=== PATIENT | female | born 1980 | race Caucasian/White ===

== ENCOUNTER → 2020-03-14 | Outpatient (CLI) | payer OTHER | END | disposition home or self-care (01) | LOC: LABMAIN 17:16 | PROVIDERS: ATTEND Obstetrics & Gynecology | DX: O20.0 Threatened abortion (principal) | CPT/HCPCS: 36415; 84702; 86850; 86900; 86901 ==

== ENCOUNTER → 2020-03-24 | Outpatient (CLI) | payer OTHER ==
--- NOTE | 2020-03-24 14:39 | US ---
EXAMINATION TYPE: Transabdominal DATE OF EXAM: 03/24/2020 2:24 PM COMPARISON: NONE CLINICAL HISTORY: O46.91 BLEEDING/SPOTTING. Bleeding had miscarriage last week. EXAM PERFORMED: Transabdominal (TA) EXAM MEASUREMENTS: MATERNAL ANATOMY Uterus: 7.1 x 3.0 x 4.5 Right Ovary: Obscured by bowel gas. Left Ovary: 1.9 x 1.3 x 1.8 cm Post CDS / Adnexa: wnl Presence of free fluid: no Presence of corpus luteal cyst: no Anteverted uterus without suspicious endometrial thickening on transabdominal pelvic ultrasound inves tigation. No free fluid in pelvic cul-de-sac. IMPRESSION: As above.
== END | disposition home or self-care (01) ==
LOC: RADUSWWP 14:07
PROVIDERS: ATTEND Obstetrics & Gynecology
DX: O46.91 Antepartum hemorrhage, unspecified, first trimester (principal); Z3A.14 14 weeks gestation of pregnancy
CPT/HCPCS: 76801

== ENCOUNTER 2021-03-16 18:47 | Inpatient (IN) | payer OTHER ==
[2021-03-16 19:27] LABS: Appearance,Urine Clear (Clear); Color,Urine Yellow; Creatinine,Urine Random 187.1 mg/dL; Glucose,Urine (UA) Negative (Negative); Ketones,Urine Negative (Negative); Protein,Urine Trace (Negative); Protein/Creatinine Ratio,Urine 0.037
[2021-03-16 19:28] LABS: Bacteria,Urine Rare /hpf; Bilirubin,Urine Negative (Negative); Blood,Urine Negative (Negative); Leukocyte Esterase,Urine Negative (Negative); Mucus,Urine Occasional /hpf; Nitrite,Urine Negative (Negative); RBC,Urine 1 /hpf (0-5); Squamous Epithelial Cell,Urine 11 /hpf (0-4); WBC,Urine 4 /hpf (0-5)
[2021-03-16 20:24] LABS: Basophils % (A) 0 %; Eosinophils # (A) 0.2 k/uL (0-0.7); Eosinophils % (A) 3 %; HCT 34.8 % (34.0-46.0); HGB 12.2 gm/dL (11.4-16.0); Lymphocytes # (A) 2.2 k/uL (1.0-4.8); Lymphocytes % (A) 25 %; MCH 32.2 pg (25.0-35.0); MCV 92.1 fL (80.0-100.0); Mean Platelet Volume 8.8; Monocytes # (A) 0.7 k/uL (0-1.0); Monocytes % (A) 8 %; Neutrophils # (A) 5.6 k/uL (1.3-7.7); Neutrophils % (A) 63 %; Platelet Count 197 k/uL (150-450); RBC 3.77 m/uL (3.80-5.40); RDW 12.8 % (11.5-15.5); WBC 8.9 k/uL (3.8-10.6)
[2021-03-16 20:33] LABS: Uric Acid 6.7 mg/dL (3.7-7.4)
[2021-03-16] MEDS ORDERED: DINOPROSTONE 10 MG INSERT.ER VAGINAL ONE (21:45)
[2021-03-16] MEDS ORDERED: MAGNESIUM SULFATE-WATER PMX 4 GM in WATER FOR INJECTION 1 100ML.BAG IVPB ONE (21:50)
[2021-03-16] MEDS ORDERED: LABETALOL 5 MG/ML VIAL MDV IVP PRN ×3 (21:50)
[2021-03-16] MEDS ORDERED: hydrALAZINE HCL 20 MG/ML 1 ML VIAL IVP PRN (21:50)
[2021-03-16] MEDS ORDERED: CALCIUM GLUCONATE 1 GM/10 ML VIAL IV PRN (21:53)
[2021-03-16] MEDS: BETAMET ACET-BETAMETH SOD PHOS 6 MG/ML MDV IM SCH (22:18)
--- NOTE | 2021-03-16 22:44 | P.HPOB ---
History of Present Illness H&P Date: 03/16/21 Chief Complaint: Uterine at 35 weeks: Hellp syndrome Care is a 41-year-old female 2 para 0 at 35 weeks 2 days gestation who has been followed for possible early preeclampsia versus Precis related liver disease. She was seen by maternal medicine earlier today and labs were ordered. They were not performed earlier today so I called her and brought her to labor and delivery where a stat preeclamptic labs were ordered. Liver enzymes which had been a little elevated in the 80s and 130s last week are now both in the well over 200s. LDH was also elevated to 700. She also has a protein creatinine ratio mouth 0.3. This appears to be atypical preeclampsia/HE LLP syndrome. I did speak with the maternal medicine physician category consultant and we discussed treatment plan. It was unclear since she is not my normal patient if we were treating her like preeclampsia or not and he verify that we will be treating her as a preeclamptic patient. We are moving forward with induction of labor. Should her cervix is essentially fingertip to closed thick and -3 station. We'll plan to do Cervidil ripening tonight with expectation for induction in the morning versus potentially a later in the day if her cervix does not dilate. We'll start magnesium sulfate therapy this evening at 4 g bolus and then 1 g per hour rather than 2 g/h through the night but should she start having any elevated blood pressures neurologic changes or other signs or symptoms will be increased to the normal 2 g/h. At this time we'll withhold Brock catheter with expectation that at least for the next several hours she should be able to ambulate and void and will follow the input and output that way. She is aware that there are risks involved with induction of labor just as there are for section and that she is approximately 5 weeks early. We'll plan to give 1 dose of Celestone in hopes that it will simply some lung maturity through the night prior to the induction in the morning. Theoretically in the morning a second dose can be given after called hours if she is not in imminent danger of delivering. On physical exam her vital signs currently are stable and she is afebrile. Her heart is regular, lungs are clear, extremities are +1-2 edematous but without pain. Deep tendon reflexes are normal. She denies any headache, no epigastric pain, no visual changes and no other signs or symptoms of or severe features of preeclampsia. Again should any of these develop or change we will increase the mag sulfate to the standard 2 g/h dosing. Also once she is in active labor will likely also be increased to the standard 2 g/h dosing will need to discuss this with the on-call doctor in the morning. Assessment intrauterine at 35 weeks with severe preeclampsia by lab/HELLP Plan induction of labor with seizure precautions and magnesium sulfate therapy. Labetalol has been ordered for hypertensive blood pressure developments Steroids to help stem that lung maturity Bedside ultrasound was done verifying vertex position prior to placement of Cervidil Past Medical History History of Any Multi-Drug Resistant Organisms: None Reported Smoking Status: Never smoker Medications and Allergies Home Medications Medication Instructions Recorded Confirmed Type Aspirin [[place] Aspirin EC] 81 mg PO DAILY 03/16/21 03/16/21 History Pnv,Calcium 72/Iron/Folic Acid 1 tab PO DAILY 03/16/21 03/16/21 History [ Plus Tablet] Allergies Allergy/AdvReac Type Severity Reaction Status Date / Time No Known Allergies Allergy Verified 03/16/21 19:11 Exam Osteopathic Statement: *. No significant issues noted on an osteopathic struct ural exam other than those noted in the History and Physical/Consult. Intake and Output 03/16/21 03/16/21 03/16/21 06:59 14:59 22:59 Other: Weight 136.078 kg Results Result Diagrams: 03/16/21 20:00 03/16/21 20:00 Abnormal Lab Results - Last 24 Hours (Table) 03/16/21 03/16/21 03/16/21 Range/Units 19:09 20:00 20:00 RBC 3.77 L (3.80-5.40) m/uL AST 290 H (14-36) U/L ALT 279 H (4-34) U/L Lactate Dehydrogenase 779 H (313-618) U/L Ur Squamous Epith Cells 11 H (0-4) /hpf Urine Bacteria Rare H (None) /hpf Urine Mucus Occasional H (None) /hpf
[2021-03-16] MEDS: LACTATED RINGERS 1,000 ML IV SCH (23:15)
[2021-03-16] MEDS: MAGNESIUM SULFATE-WATER PMX 20 GM in WATER FOR INJECTION 1 500ML.BAG IV SCH (23:37)
[2021-03-17] MEDS ORDERED: METHYLERGONOVINE 0.2 MG/ML 1 ML AMP IM PRN (06:10)
[2021-03-17] MEDS ORDERED: LIDOCAINE 0.5% (PF) 5 MG/ML (50 ML SDV) SQ PRN (06:10)
[2021-03-17] MEDS ORDERED: CARBOPROST TROMETHAMINE 250 MCG/ML 1 ML AMP IM PRN (06:10)
[2021-03-17] MEDS ORDERED: TERBUTALINE 1 MG/ML VIAL SQ PRN (06:10)
[2021-03-17] MEDS ORDERED: AMPICILLIN 2,000 MG in SODIUM CHLORIDE 0.9% 100 ML IVPB STA (06:10)
[2021-03-17] MEDS ORDERED: OXYTOCIN 10 UNIT/ML 1 ML VIAL IM PRN (06:10)
[2021-03-17] MEDS ORDERED: OXYTOCIN 30 UNITS/500 ML NS 30 UNIT in SALINE 1 500ML.BAG IV SCH ×2 (06:15→22:12)
[2021-03-17] MEDS ORDERED: LACTATED RINGERS 1,000 ML IV SCH (06:15)
--- NOTE | 2021-03-17 07:27 | P.PN ---
Progress Note - Text Progress Note Date: 03/17/21 Lovely was seen and evaluated this morning she did have some cramping last night and an exam was done she is now 1/2 cm 80% effaced -3 station and artificial rupture membranes was performed and clear fluid is noted. Pitocin augmentation of labor will be initiated and she is received 1 dose of and about X as a group B strep prophylaxis. Her blood pressures have remained stable through the night and she has no other signs or symptoms of or severe features of preeclampsia. She does relate that she has had some lightheadedness secondary likely to the mag sulfate but otherwise she is doing well this morning.
[2021-03-17] MEDS: AMPICILLIN 1,000 MG in SODIUM CHLORIDE 0.9% 50 ML IVPB SCH ×3 (11:08→18:52)
[2021-03-17] MEDS: LACTATED RINGERS 1,000 ML IV SCH (11:39)
[2021-03-17] MEDS ORDERED: ROPIVACAINE 5MG/ML 20ML VIAL ONE (11:49)
[2021-03-17] MEDS ORDERED: SODIUM CHLORIDE 0.9% 100 ML BAG ONE (11:49)
[2021-03-17] MEDS ORDERED: fentaNYL (PF) 50 MCG/ML 5 ML AMP ONE (11:49)
[2021-03-17] MEDS ORDERED: ROPIVACAINE 100 MG, fentaNYL (PF). 200 MCG in SODIUM CHLORIDE 0.9% 76 ML EPIDURAL ONE (12:06)
[2021-03-17] MEDS: MAGNESIUM SULFATE-WATER PMX 20 GM in WATER FOR INJECTION 1 500ML.BAG IV SCH (20:10)
[2021-03-17] MEDS ORDERED: CITRIC ACID-SODIUM CITRATE 15 ML CUP PO ONE (20:41)
[2021-03-17] MEDS ORDERED: ceFAZolin 3 GM in SODIUM CHLORIDE 0.9% 100 ML IVPB ONE (20:42)
[2021-03-17] MEDS ORDERED: fentaNYL (PF) 50 MCG/ML 2 ML AMP ONE (20:57)
[2021-03-17] MEDS ORDERED: NALBUPHINE 10 MG/ML (1 ML AMP) ONE (20:57)
[2021-03-17] MEDS ORDERED: OXYTOCIN 30 UNITS/500 ML NS BAG IV ONE (20:57)
[2021-03-17] MEDS ORDERED: MORPHINE SULFATE (PF) 0.3 MG/0.3 ML SYR ONE (20:57)
[2021-03-17] MEDS ORDERED: ONDANSETRON 4 MG/2 ML VIAL ONE (20:57)
[2021-03-17] MEDS ORDERED: KETOROLAC 15 MG/ML 1 ML VIAL ONE (20:57)
--- NOTE | 2021-03-17 21:49 | P.OP ---
Date of Procedure: 03/17/21 Preoperative Diagnosis: 1. Intrauterine at 35-3/7 weeks. 2. Atypical preeclampsia. 3. Arrest of dilatation. Postoperative Diagnosis: Same Procedure(s) Performed: Primary low transverse section Anesthesia: epidural Surgeon: Marcela Henry Manager Product Design #1: Viola Dick Estimated Blood Loss (ml): 400 Pathology: other (Placenta) Condition: stable Disposition: floor Indications for Procedure: This is a 41-year-old female 2 para 0 at 35-2/7 weeks who presented after being seen by maternal medicine earlier in the day. She had preeclamptic labs drawn and her liver enzymes were significantly elevated. After consultation with [facility] she was admitted and placed on magnesium sulfate seizure prophylaxis and induction of labor was started. She underwent Cervidil cervical ripening followed by oxytocin induction of labor with artificial rupture of membranes with clear fluid noted. She did receive epidural anesthesia. She reached a maximum of 5 cm and made no cervical change for at least 5-6 hours despite adequate contractions. In addition more caput was noted on the fetus. At this time the decision was made to proceed with primary section secondary to failure to progress. I have discussed the risks, benefits, and alternative therapies for the above- mentioned procedure and for both sedation/anesthesia as well as necessary blood products administration, if indicated, as they pertain to this patient. The patient has indicated her understanding and acceptance of the risks and procedures discussed. Operative Findings: A viable male infant is noted in the vertex presentation with scores of 4 at 1 minute 5 at 5 minutes and 7 at 10 minutes and nuchal cord 1. There was significant caput noted. Normal uterus tubes and ovaries are noted. Description of Procedure: The patient is taken to the operating room where she is placed in the dorsal supine position with leftward tilt after epidural anesthesia is bolused. She is prepped and draped in the normal sterile fashion. Skin was tested and found to be adequately anesthetized. A Pfannenstiel skin incision was made with a scalpel. A second knife was used to carry the incision down to the underlying layer of fascia. The fascia was nicked in the midline with a scalpel and then extended laterally bilaterally with Lomas scissors. The anterior lip of the fascia was grasped with 2 Amandeep clamps and then dissected off the underlying rectus muscle in the midline with Lomas scissors. The inferior aspect of the fascial incision was grasped with 2 Amandeep clamps and dissected off the unde rlying rectus muscle and the midline with Lomas scissors. Next the peritoneum layer was tented up with 2 hemostats and then entered sharply with the scalpel. The incision is extended superiorly and inferiorly with Metzenbaum scissors. Next a DeLee retractor is placed. The vesicouterine peritoneum is entered sharply with Metzenbaum scissors and extended laterally bilaterally with Metzenbaum scissors and then the bladder flap is pushed inferiorly. The lower uterine segment is incised in transverse fashion with the scalpel and then bluntly entered with a hemostat. Clear fluid is noted. The incision was then extended laterally bilaterally with 2 fingers. Next the infant's head is delivered through the incision. Nose and mouth are bulb suctioned. Nuchal cord 1 is reduced. The remainder of the is easily delivered and placed on mother's abdomen. Cord is clamped and cut. Infant is taken to warmer by nursing staff. Dr. Stewart, the sanitor, is present for delivery. Uterine fundus is gently massaged and placenta is delivered manually. Uterus is exteriorized and cleared of all clots and debris. Uterine incision is closed with 0 Vicryl suture in a running locked fashion. A second layer of 0 Vicryl suture is used in a running fashion for hemostasis. Once adequate hemostasis as assured, the vesicouterine peritoneum is reapproximated with 2-0 Vicryl suture in a running fashion. Posterior cul-de-sac is suctioned of all clots and debris. Uterus is returned to the abdomen. Incision is noted to be hemostatic. Peritoneal layer is closed with 0 Vicryl suture in a running fashion. Muscle layer is reapproximated with 0 Vicryl suture in interrupted fashion. An interrupted stitches placed on the muscle on the right side for hemostasis. Fascia layer is then closed with 0 PDS suture with 2 sutures meeting in the midline and the knots buried in either side and in the midline. The subcutaneous tissue was then closed with 2-0 Vicryl suture. Skin layer was then closed with cesilia. All sponge and needle counts are correct. The patient is taken to recovery room in stable condition.
[2021-03-17] MEDS ORDERED: ONDANSETRON 4 MG/2 ML VIAL IVP PRN (22:12)
[2021-03-17] MEDS ORDERED: HYDROmorphone 2 MG TAB PO PRN ×2 (22:12)
[2021-03-17] MEDS ORDERED: diphenhydrAMINE 50 MG/ML 1 ML VIAL IVP PRN ×2 (22:12)
[2021-03-17] MEDS ORDERED: NALOXONE 0.4 MG/ML 1 ML VIAL IV PRN (22:12)
[2021-03-17] MEDS ORDERED: diphenhydrAMINE 25 MG CAP PO PRN (22:12)
[2021-03-17] MEDS ORDERED: diphenhydrAMINE 50 MG CAP PO PRN (22:12)
[2021-03-17] MEDS ORDERED: LANOLIN CREAM 5 GM TUBE TOPICAL PRN (22:12)
[2021-03-17] MEDS ORDERED: SIMETHICONE 80 MG CHEWABLE PO PRN (22:12)
[2021-03-17] MEDS ORDERED: ZOLPIDEM 5 MG TAB PO PRN (22:12)
[2021-03-17] MEDS ORDERED: HYDROmorphone PCA 10 MG/50 ML BAG IV PRN (22:12)
[2021-03-17] MEDS ORDERED: HYDROmorphone 0.2 MG/1 ML SYRINGE IVP PRN (22:12)
[2021-03-17] MEDS ORDERED: HYDROmorphone 1 MG/ML 1 ML SYRINGE IVP PRN (22:12)
[2021-03-17] MEDS ORDERED: METOCLOPRAMIDE 5 MG/ML 2 ML VIAL IVP PRN (22:12)
[2021-03-18] MEDS: ACETAMINOPHEN IV (For NPO) 1,000 MG in EMPTY BAG 1 BAG IVPB SCH ×2 (00:19→05:59)
[2021-03-18] MEDS: BETAMET ACET-BETAMETH SOD PHOS 6 MG/ML MDV IM SCH (00:25)
[2021-03-18] MEDS: ACETAMINOPHEN TAB 500 MG TAB PO SCH ×5 (00:26→22:57)
[2021-03-18] MEDS: KETOROLAC 15 MG/ML 1 ML VIAL IVP SCH ×4 (03:09→20:06)
[2021-03-18] MEDS: IBUPROFEN 600 MG TAB PO SCH ×4 (03:53→21:25)
[2021-03-18] MEDS ORDERED: Rhogam IMMUNE GLOBULIN 1,500 UNIT/1 ML IM ONE (05:32)
[2021-03-18 07:37] LABS: Basophils % (A) 0 %; Eosinophils % (A) 0 %; HCT 33.4 % (34.0-46.0); Lymphocytes # (A) 1.6 k/uL (1.0-4.8); Lymphocytes % (A) 10 %; MCH 31.1 pg (25.0-35.0); MCV 94.1 fL (80.0-100.0); Monocytes % (A) 7 %; Neutrophils # (A) 12.9 k/uL (1.3-7.7); Neutrophils % (A) 82 %; Platelet Count 212 k/uL (150-450); RBC 3.55 m/uL (3.80-5.40); RDW 13.6 % (11.5-15.5); WBC 15.7 k/uL (3.8-10.6)
[2021-03-18] MEDS: SENNOSIDES-DOCUSATE SODIUM 1 EACH TAB PO SCH ×2 (07:58→20:05)
--- NOTE | 2021-03-18 08:41 | P.PNOBGPC ---
Subjective - Subjective Principal diagnosis: Status post primary section postoperative day #1 Interval history: Patient is doing okay. Lochia is minimal. She is not passing flatus or bowel movement yet. She still has been using and sulfate going at 1 g per hour. She denies any headaches or blurry vision. Baby is in level I nursery. Patient reports: Reports pain well controlled : other (In level I nursery) Objective - Vital Signs Latest vital signs: Vital Signs Temp Pulse Resp BP Pulse Ox 03/18/21 05:00 96.6 F L 67 112/64 99 03/18/21 04:00 64 16 113/59 98 03/18/21 03:00 68 16 124/58 99 03/18/21 02:00 97.4 F L 67 16 114/63 03/18/21 01:00 67 16 120/61 03/18/21 00:08 74 16 120/63 98 03/18/21 00:00 97.8 F 87 16 119/61 100 03/17/21 23:38 76 16 120/56 100 03/17/21 23:08 80 16 119/58 99 03/17/21 22:53 86 16 122/56 98 03/17/21 22:38 97.7 F 81 16 121/57 97 03/17/21 22:23 78 16 120/58 100 03/17/21 22:08 81 16 125/60 97 03/17/21 21:54 97.4 F L 103 H 16 133/62 97 03/17/21 18:00 87 16 122/58 03/17/21 17:00 97.1 F L 92 16 142/80 03/17/21 15:59 97.8 F 75 16 115/52 03/17/21 14:57 96.5 F L 82 16 131/73 03/17/21 14:00 96.9 F L 92 16 140/66 03/17/21 13:00 81 16 133/71 03/17/21 12:00 97.7 F 102 H 16 135/70 03/17/21 11:00 98.4 F 83 16 132/79 03/17/21 10:00 97.5 F L 76 16 116/59 03/17/21 09:00 98.1 F 77 16 131/77 Intake and Output 03/17/21 03/18/21 03/18/21 22:59 06:59 14:59 Intake Total 500 200 Output Total 600 2500 Balance -100 -2300 Intake: Intake, IV Titration 500 200 Amount ACETAMINOPHEN IV (For NPO 100 ) 1,000 mg In Empty Bag 1 bag @ 400 mls/hr IVPB Q6HR [facility] Rx#:[id number] Magnesium Sulfate-Water 500 Pmx 20 gm In Water For Injection 1 500ml.bag @ 1 GM/HR 25 mls/hr IV .Q20H [facility] Rx#:[id number] ceFAZolin 3 gm In Sodium 100 Chloride 0.9% 100 ml @ 200 mls/hr IVPB ONCE ONE Rx#:[id number] Output: Urine 200 2100 Estimated Blood Loss 400 400 Other: Voiding Method Indwelling Catheter Indwelling Catheter # Emeses 2 - Exam Extremities: Present: normal. Absent: tenderness Abdomen: Present: normal appearance, soft (Positive faint bowel sounds 4). Absent: distention, tenderness Incision: Present: normal, dry, intact. Absent: erythematous Uterus: Present: normal, firm. Absent: tenderness - Labs Labs: Abnormal Lab Results - Last 24 Hours (Table) 03/18/21 Range/Units 06:36 WBC 15.7 H (3.8-10.6) k/uL RBC 3.55 L (3.80-5.40) m/uL Hgb 11.0 L (11.4-16.0) gm/dL Hct 33.4 L (34.0-46.0) % Neutrophils # 12.9 H (1.3-7.7) k/uL Assessment and Plan Assessment: Status post primary low transverse section postoperative day #1 Atypical preeclampsia on magnesium sulfate seizure prophylaxis for 24 hours postoperative Plan: We'll discontinue magnesium sulfate at approximately 9 PM tonight along with Brock catheter. Will keep on clear liquids until done with magnesium sulfate. Will repeat liver enzymes in the a.m.
--- NOTE | 2021-03-18 11:33 | P.PN ---
Progress Note - Text Progress Note Date: 03/18/21 Patient seen and examined. Pain well controlled s/p with duramorph given in the epidural. Patient is able to ambulate without difficulty today. Patient denies headache, fever, chills. Continue will current pain regime. Will continue to follow.
[2021-03-18] MEDS: MAGNESIUM SULFATE-WATER PMX 20 GM in WATER FOR INJECTION 1 500ML.BAG IV SCH (15:32)
[2021-03-18] MEDS: LACTATED RINGERS 1,000 ML IV SCH (15:35)
[2021-03-19] MEDS: KETOROLAC 15 MG/ML 1 ML VIAL IVP SCH (02:06)
[2021-03-19] MEDS: IBUPROFEN 600 MG TAB PO SCH ×4 (05:02→23:08)
[2021-03-19] MEDS: ACETAMINOPHEN TAB 500 MG TAB PO SCH ×3 (05:02→19:32)
[2021-03-19 07:21] LABS: Basophils % (A) 0 %; Eosinophils # (A) 0.1 k/uL (0-0.7); Eosinophils % (A) 0 %; HCT 32.3 % (34.0-46.0); HGB 10.6 gm/dL (11.4-16.0); Lymphocytes # (A) 1.9 k/uL (1.0-4.8); Lymphocytes % (A) 17 %; MCH 31.2 pg (25.0-35.0); MCHC 32.7 g/dL (31.0-37.0); MCV 95.4 fL (80.0-100.0); Mean Platelet Volume 8.2; Monocytes # (A) 0.8 k/uL (0-1.0); Monocytes % (A) 7 %; Neutrophils # (A) 8.4 k/uL (1.3-7.7); Neutrophils % (A) 74 %; Platelet Count 196 k/uL (150-450); RBC 3.38 m/uL (3.80-5.40); RDW 13.8 % (11.5-15.5); WBC 11.3 k/uL (3.8-10.6)
[2021-03-19 07:35] LABS: ALT 543 U/L (4-34); AST 541 U/L (14-36); LDH 1470 U/L (313-618)
[2021-03-19] MEDS: SENNOSIDES-DOCUSATE SODIUM 1 EACH TAB PO SCH ×2 (08:27→21:49)
--- NOTE | 2021-03-19 09:03 | P.PNOBGPC ---
Subjective - Subjective Principal diagnosis: Status post primary low transverse section postoperative day #2 Interval history: Patient feels well. She denies any headaches or blurry vision or epigastric pain. Her abdominal pain is fairly well controlled with ibuprofen or Toradol. She is passing some flatus but no bowel movement yet. She is tolerating a regular diet so far. Lochia is minimal. She is working on pumping her breast milk. Patient reports: Reports appetite normal, Reports voiding normally, Reports pain well controlled, Reports ambulating normally [place]: other (In level I nursery) Objective - Vital Signs Latest vital signs: Vital Signs Temp Pulse Resp BP Pulse Ox 03/19/21 08:00 98.5 F 63 15 139/84 03/19/21 04:00 97.0 F L 70 16 127/78 100 03/18/21 23:30 98.8 F 68 16 136/74 97 03/18/21 21:00 96.6 F L 79 17 133/78 100 03/18/21 20:00 96.6 F L 85 16 121/62 100 03/18/21 19:00 96.4 F L 69 16 127/61 99 03/18/21 18:00 96.2 F L 72 16 134/64 100 03/18/21 17:00 96.8 F L 73 16 143/64 98 03/18/21 16:00 96.9 F L 79 16 129/62 03/18/21 15:00 96.1 F L 75 16 140/61 03/18/21 14:00 96.1 F L 71 16 131/62 03/18/21 13:00 96.3 F L 71 16 136/73 03/18/21 11:59 97.2 F L 62 16 121/58 03/18/21 11:00 98.2 F 72 16 117/70 03/18/21 10:00 96.5 F L 72 16 148/68 Intake and Output 03/18/21 03/19/21 03/19/21 22:59 06:59 14:59 Intake Total 984.167 500 Output Total 1700 750 Balance -715.833 -250 Intake: Intake, IV Titration 484.167 Amount Magnesium Sulfate-Water 484.167 Pmx 20 gm In Water For Injection 1 500ml.bag @ 1 GM/HR 25 mls/hr IV .Q20H [facility] Rx#:[id number] Oral 500 500 Output: Urine 1700 750 Other: # Voids 1 Weight 129.002 kg - Exam Extremities: Present: normal. Absent: tenderness, edema Abdomen: Present: normal appearance, soft. Absent: distention, tenderness Incision: Present: normal, dry, intact. Absent: erythematous Uterus: Present: normal, firm. Absent: tenderness - Labs Labs: Abnormal Lab Results - Last 24 Hours (Table) 03/19/21 03/19/21 Range/Units 06:51 06:51 WBC 11.3 H (3.8-10.6) k/uL RBC 3.38 L (3.80-5.40) m/uL Hgb 10.6 L (11.4-16.0) gm/dL Hct 32.3 L (34.0-46.0) % Neutrophils # 8.4 H (1.3-7.7) k/uL AST 541 H (14-36) U/L ALT 543 H (4-34) U/L Lactate Dehydrogenase 1470 H (313-618) U/L Assessment and Plan Assessment: Status post primary low transverse section postoperative day #2 Atypical preeclampsia, status post magnesium sulfate for seizure prophylaxis Increasing liver enzymes despite delivery and magnesium sulfate prophylaxis Plan: We'll consult GI today in regards to elevated liver enzymes to rule out other causes besides preeclampsia. Continue with postoperative care.
[2021-03-19 09:47] LABS: Total Bilirubin 0.4 mg/dL (0.2-1.3)
--- NOTE | 2021-03-19 12:03 | P.CONS ---
History of Present Illness - Reason for Consult Consult date: 03/19/21 Elevated liver enzymes Requesting physician: Marcela Henry - Chief Complaint Severe preeclampsia/hellp syndrome - History of Present Illness This is a pleasant 41-year-old white female who is being following with Dr. Foster and high manager risk management at [facility] for elevated blood pressures and swelling during her . She was admitted with the atypical preeclampsia/HELLP syndrome on 03/16/21at 35 weeks and delivered on 03/17/21 by primary section. She was trialed at labor and did receive ampicillin during her labor process, she failed to dilate and underwent a primary section. The patient also received Kefzol 3 g during her section. She was started on magnesium sulfate on admission and it was discontinued yesterday at 2100. Apparently she had been having elevated blood pressures and increased swelling over the last couple weeks and her primary pediatric physiatrist sent her to the maternal- medicine specialist at [facility] where she was noted to have elevated liver enzymes. On March 10 her AST was 98, ALT 149 she underwent an ultrasound of the abdomen which showed a normal liver and normal gallbladder. She again was seen by her maternal medicine physician on Tuesday and then went to see Dr. Foster and had blood work done with an increase in her LFTS and was sent to hospital for delivery. She denies any previous history of liver disease, alcohol abuse, new medications, or elevated liver enzymes in the past. However, states that she has not followed with a primary care physician due to no health complications and has not had any recent blood work done prior to her . She has no previous history of cholecystectomy, no significant past medical history. She denies any abdominal pain, nausea, or vomiting. Her LFTs continued to trend up. 03/16/21 her AST was 290 and increased to 541 today, ALT 279 increased to 543, WBC 11.3, hemoglobin 10.6, hematocrit 32.3, platelet count 196,000. Review of Systems REVIEW OF SYSTEMS: CARDIOPULMONARY: No chest pain or shortness of breath. Gastrointestinal: No abdominal pain, other than surgical pain from recent section. No nausea or vomiting. No hematemesis, coffee-ground emesis . No rectal bleeding, or melena. GENITOURINARY: No dysuria or hematuria. MUSCULOSKELETAL: Reports normal range of motion., Joint pain. SKIN: No rashes. No jaundice. ENDOCRINE: No chills, fevers. No excessive weight gain or loss. No polydipsia or polyuria. PSYCHIATRIC: Unremarkable. NEUROLOGY: No change in mental status. Denies dizziness, headache. ENT: Vision unremarkable. CONSTITUTIONAL: No recent weight loss. No fever, chills, night sweats. Past Medical History Past Medical History: No Reported History History of Any Multi-Drug Resistant Organisms: None Reported Additional Past Surgical History / Comment(s): wisdom teeth Past Anesthesia/Blood Transfusion Reactions: No Reported Reaction Smoking Status: Never smoker Past Alcohol Use History: None Reported - Past Family History Father Family Medical History: Hypertension Medications and Allergies Home Medications Medication Instructions Recorded Confirmed Type Aspirin [[place] Aspirin EC] 81 mg PO DAILY 03/16/21 03/16/21 History Pnv,Calcium 72/Iron/Folic Acid 1 tab PO DAILY 03/16/21 03/16/21 History [ Plus Tablet] Allergies Allergy/AdvReac Type Severity Reaction Status Date / Time No Known Allergies Allergy Verified 03/16/21 19:11 Physical Exam Vitals: Vital Signs Temp Pulse Resp BP Pulse Ox 03/19/21 08:00 98.5 F 63 15 139/84 03/19/21 04:00 97.0 F L 70 16 127/78 100 03/18/21 23:30 98.8 F 68 16 136/74 97 03/18/21 21:00 96.6 F L 79 17 133/78 100 03/18/21 20:00 96.6 F L 85 16 121/62 100 03/18/21 19:00 96.4 F L 69 16 127/61 99 03/18/21 18:00 96.2 F L 72 16 134/64 100 03/18/21 17:00 96.8 F L 73 16 143/64 98 03/18/21 16:00 96.9 F L 79 16 129/62 03/18/21 15:00 96.1 F L 75 16 140/61 03/18/21 14:00 96.1 F L 71 16 131/62 03/18/21 13:00 96.3 F L 71 16 136/73 03/18/21 11:59 97.2 F L 62 16 121/58 Intake and Output 03/18/21 03/19/21 03/19/21 22:59 06:59 14:59 Intake Total 984.167 500 Output Total 1700 750 Balance -715.833 -250 Intake: Intake, IV Titration 484.167 Amount Magnesium Sulfate-Water 484.167 Pmx 20 gm In Water For Injection 1 500ml.bag @ 1 GM/HR 25 mls/hr IV .Q20H [facility] Rx#:[id number] Oral 500 500 Output: Urine 1700 750 Other: # Voids 1 Weight 129.002 kg General appearance: The patient is alert, oriented, in no acute distress. Obese. HET: Head is normocephalic and atraumatic. Conjunctiva pink. Sclera and icteric. Neck: Supple without lymphadenopathy. Trachea midline. Heart: S1 S2. Regular rate and rhythm. Lungs: No crackles or wheezes are heard. Abdomen: Soft, surgical tenderness, nondistended with bowel sounds. No guarding or rigidity Skin: No rashes. No jaundice. Extremities: Normal skin color and turgor. Bilateral +1-2 lower extremity edema Neurological: No focal deficits. Alert and oriented 3. Results CBC & Chem 7: 03/19/21 06:51 03/16/21 20:00 Labs: Abnormal Lab Results - Last 24 Hours (Table) 03/19/21 03/19/21 Range/Units 06:51 06:51 WBC 11.3 H (3.8-10.6) k/uL RBC 3.38 L (3.80-5.40) m/uL Hgb 10.6 L (11.4-16.0) gm/dL Hct 32.3 L (34.0-46.0) % Neutrophils # 8.4 H (1.3-7.7) k/uL AST 541 H (14-36) U/L ALT 543 H (4-34) U/L Lactate Dehydrogenase 1470 H (313-618) U/L Assessment and Plan (1) Elevated liver enzymes Narrative/Plan: 41-year-old female who is a 2 para 1 who was at 35 weeks and being followed by maternal- medicine and obstetrics for presumably preeclampsia/HELLP syndrome who had an increase in elevation of her liver enzymes and was sent in for induction of labor. Induction of labor was trialed, however patient did not dilate past 5 cm and was taken for primary section on 03/17/2021. From last week to this week the patient was noted to have markedly increased liver enzymes, without any prior history of liver disease, alcoholism, or known elevated liver enzymes prior to her . Denies any new medications during her other than her vitamin and a low-dose aspirin. She was given penicillin during her labor and 3 g during her delivery. Patient states she had a liver ultrasound that was pe rformed on 03/10/2021 which showed a normal liver, normal gallbladder. Tuesday her AST was 290, increased to 541 today, ALT 279 increased to 543. We are likely dealing with elevation in LFTs related to presumed preeclampsia/HELLP syndrome, however she had no evidence of thrombocytopenia or hemolytic anemia. Other possible causes of elevation of LFTs will be worked up. Current Visit: Yes Status: Acute Code(s): R74.8 - ABNORMAL LEVELS OF OTHER SERUM ENZYMES SNOMED Code(s): 075772293 (2) Preeclampsia Current Visit: Yes Status: Acute Code(s): O14.90 - UNSPECIFIED PRE- ECLAMPSIA, UNSPECIFIED TRIMESTER SNOMED Code(s): 810307229 Plan: 1. Continue symptomatic and supportive care 2. Acute hepatitis panel ordered 3. Total bilirubin and alkaline phosphatase ordered 4. Repeat CMP tomorrow 5. Avoid hepatotoxic medications 6. Request liver ultrasound from [facility], report reviewed 7. CMV, EBV, ORI ordered Thank you for this consultation, we will continue to follow Dr. Mihaela Cummings I agree with the dictator's note, documented as a scribe by Glenny Benitez.
[2021-03-19 20:56] LABS: Hepatitis A Antibody IgM Non-Reactive (Non-Reactive); Hepatitis B Core IgM Non-Reactive (Non-Reactive); Hepatitis B Surface Antigen Non-Reactive (Non-Reactive); Hepatitis C IgG Antibody Non-Reactive (Non-Reactive)
[2021-03-20] MEDS: ACETAMINOPHEN TAB 500 MG TAB PO SCH ×2 (01:33→06:49)
[2021-03-20 04:11] VITALS: RESP 16
[2021-03-20] MEDS: IBUPROFEN 600 MG TAB PO SCH ×2 (05:17→11:16)
[2021-03-20 08:00] LABS: Albumin 2.7 g/dL (3.5-5.0); Calcium 8.1 mg/dL (8.4-10.2); Potassium 4.4 mmol/L (3.5-5.1); Total Bilirubin 0.3 mg/dL (0.2-1.3); Total Protein 5.1 g/dL (6.3-8.2)
[2021-03-20 08:34] VITALS: BP 136/83; PULSE 68; TEMP 96.8
[2021-03-20] MEDS: SENNOSIDES-DOCUSATE SODIUM 1 EACH TAB PO SCH (08:34)
--- NOTE | 2021-03-20 09:06 | P.PNOBGPC ---
Subjective - Subjective Principal diagnosis: Status post primary section postoperative day #3 Interval history: Patient feels well. She is ambulating. She is passing flatus and bowel movement. Her pain is well-controlled on ibuprofen. She is anxious to go home. Her baby is still in level I nursery and is working on feeding. Patient reports: Reports appetite normal, Reports voiding normally, Reports pain well controlled, Reports ambulating normally : doing well, other (In level I nursery) Objective - Vital Signs Latest vital signs: Vital Signs Temp Pulse Resp BP BP Pulse Ox 03/20/21 08:00 96.8 F L 68 16 136/83 03/20/21 04:00 98.3 F 58 L 16 138/83 97 03/20/21 00:00 99.5 F 69 18 149/85 98 03/19/21 20:00 98.3 F 79 16 131/85 99 03/19/21 17:08 98.5 F 72 15 132/67 03/19/21 12:00 98.3 F 66 15 142/78 Intake and Output 03/19/21 03/20/21 03/20/21 22:59 06:59 14:59 Other: Weight 129.591 kg - Exam Extremities: Present: normal, edema (Trace). Absent: tenderness Abdomen: Present: normal appearance, soft (Positive bowel sounds 4). Absent: distention, tenderness Incision: Present: normal, dry, intact. Absent: erythematous Uterus: Present: normal, firm. Absent: tenderness - Labs Labs: Abnormal Lab Results - Last 24 Hours (Table) 03/20/21 Range/Units 07:31 Sodium 136 L (137-145) mmol/L Calcium 8.1 L (8.4-10.2) mg/dL AST 327 H (14-36) U/L ALT 468 H (4-34) U/L Total Protein 5.1 L (6.3-8.2) g/dL Albumin 2.7 L (3.5-5.0) g/dL Assessment and Plan Assessment: Status post primary low transverse section postoperative day #2 Atypical preeclampsia, status post magnesium sulfate for seizure prophylaxis Elevated liver enzymes, decreasing today Plan: Appreciate GI input. Since levels are declining, will check with GI to see if patient could be discharged today with liver enzymes to be followed as an outpatient. Will check back at around noontime today to see if patient is able to be discharged.
--- NOTE | 2021-03-20 12:45 | P.DS ---
Providers Date of admission: 03/16/21 20:50 Expected date of discharge: 03/20/21 Attending physician: Miky Foster Consults: 03/19/21 08:58 Consult Physician Urgent Consulting Provider: [place] Consult Reason/Comments: Persistent elevated liver enzymes despite delivery & magnesium sulfate Do you want consulting provider notified?: Yes Primary care physician: Stated None Hospital Course: This is a 41-year-old female 2 para 0 at 35-3/7 weeks who presented with elevated liver enzymes. She was diagnosed with atypical preeclampsia and per recommendations of maternal medicine, she was started with Cervidil cervical ripening followed by oxytocin induction of labor and magnesium sulfate seizure prophylaxis. She also was given 1 dose of Celestone for lung maturity. She underwent oxytocin induction of labor the next morning and reached a maximum of 5 cm. She then underwent a primary low transverse section on 03/17/2021 and delivered a viable male with scores of 4 at 1 minute and 5 at 5 minutes and 7 at 10 minutes with nuchal cord times one and infant weight of 6 lbs. 3 oz. Her postoperative course was essentially uncomplicated. Liver enzymes were repeated on postoperative day 2 and had actually increased rather than decreased. GI was consulted. Liver enzymes on postoperative day #3 now are starting to trend downward. Patient has been passing flatus and bowel movement. Her pain is been well controlled with ibuprofen. She is bottle feeding. Lochia is minimal. She does still have some swelling in her lower extremities but no other symptoms of headache, blurry vision, or epigastric pain. Vital signs have been stable. Abdomen is soft with positive bowel sounds 4. Incision is clean dry and intact with cesilia in place. Extremities show negative Homans. Impression is status post primary low transverse section postoperative day #3, atypical preeclampsia-status post magnesium sulfate seizure prophylaxis, persistent elevated liver enzymes-starting to improve. Plan is to discharge home if okay with GI today. Will follow-up in approximately one week with Dr. Foster and order slip is given to the patient to repeat her liver enzymes prior to her appointment with him. Cesilia will be removed and Steri-Strips placed prior to discharge. Routine postoperative and instructions are given. She will follow-up in approximately 1 week for a postoperative check and in 6 weeks for a check. She is advised to call the office if she has any further questions or concerns prior to her appointment time. Procedures: Cervidil cervical ripening Oxytocin induction of labor Primary low transverse section for delivery of a viable male infant on 03/17/2021 Patient Condition at Discharge: Stable Plan - Discharge Summary New Discharge Prescriptions: New Ibuprofen [Motrin] 600 mg PO Q6H #60 tab Continue Pnv,Calcium 72/Iron/Folic Acid [ Plus Tablet] 1 tab PO DAILY Discontinued Aspirin [[place] Aspirin EC] 81 mg PO DAILY Discharge Medication List Pnv,Calcium 72/Iron/Folic Acid [ Plus Tablet] 1 tab PO DAILY 03/16/21 [History] Ibuprofen [Motrin] 600 mg PO Q6H #60 tab 03/20/21 [Rx] Follow up Appointment(s)/Referral(s): Miky Foster MD [STAFF PHYSICIAN] - 04/23/21 11:00 am (Please schedule postoperative appointment in approximately 1 week) Activity/Diet/Wound Care/Special Instructions: Instructions 1. Do not begin any exercise program for 3 weeks. 2. Do not resume sexual relations for 3 weeks or longer if uncomfortable. 3. You may take tub baths or showers at any time. 4. You may use tampons if desired after 3 weeks. 5. Keep the area of episiotomy (stitches) clean and dry. 6. If you are not nursing, wear a good fitting, supportive bra during the day and limit fluid intake for at least 1 week to prevent breast engorgement. 7. Call the office, [phone], within the next week to make appointment for your 6 week checkup if it has not already been made. 8. Report any of the following occurrences to the doctor promptly: a. Heavy, excessive bleeding b. Chills, fever c. Burning or frequency of urination d. Pain or redness and breasts if nursing e. Increasing pain or swelling in episiotomy (stitches). In addition to the above instructions, the following additional should be followed: 1. No heavy lifting or straining (exercising) until after 6 week checkup. 2. Keep abdominal incision clean and dry: You may wear a dressing if more comfortable. 3. Make office appointment for 10 days after going home or as instructed by her doctor. Discharge Disposition: HOME SELF-CARE
--- NOTE | 2021-03-20 16:03 | P.PN ---
Subjective Progress Note Date: 03/20/21 Principal diagnosis: Elevated LFTS the patient was seen and examined at the bedside. She denies any nausea, vomiting, or abdominal pain. Liver enzymes are trending down. CMV, EBV, and ORI pending. Patient is without any signs of headache, blurred vision, or seizure activity. She's been up and ambulating, eating well. Plan is for discharge home this afternoon. Objective - Vital Signs Vital signs: Vital Signs Temp 96.8 F L 03/20/21 08:00 Pulse 68 03/20/21 08:00 Resp 16 03/20/21 08:00 BP 136/83 03/20/21 08:00 Pulse Ox 97 03/20/21 04:00 Intake & Output 03/19/21 03/20/21 03/20/21 18:59 06:59 18:59 Weight 129.591 kg - Exam General appearance: The patient is alert, oriented, appears in no acute distress. HET: Head is normocephalic and atraumatic. Conjunctiva pink. Sclera anicteric. Neck: Supple without lymphadenopathy. Abdomen: Soft, nontender, nondistended with bowel sounds. No guarding or rigidity. Extremities: Normal skin color and turgor. No pedal edema Skin: No rashes, no jaundice Neurological: No focal deficits. Alert and oriented 3. - Labs CBC & Chem 7: 03/19/21 06:51 03/20/21 07:31 Labs: Abnormal Lab Results - Last 24 Hours (Table) 03/20/21 03/20/21 Range/Units 07:31 07:31 Sodium 136 L (137-145) mmol/L Calcium 8.1 L (8.4-10.2) mg/dL AST 327 H (14-36) U/L ALT 468 H (4-34) U/L Lactate Dehydrogenase 915 H (313-618) U/L Total Protein 5.1 L (6.3-8.2) g/dL Albumin 2.7 L (3.5-5.0) g/dL Assessment and Plan (1) Elevated liver enzymes Narrative/Plan: 41-year-old female who is a 2 para 1 who was at 35 weeks and being followed by maternal- medicine and obstetrics for presumably pre eclampsia/HELLP syndrome who had an increase in elevation of her liver enzymes and was sent in for induction of labor. Induction of labor was trialed, however patient did not dilate past 5 cm and was taken for primary section on 03/17/2021. From last week to this week the patient was noted to have markedly increased liver enzymes, without any prior history of liver disease, alcoholism, or known elevated liver enzymes prior to her . Denies any new medications during her other than her vitamin and a low-dose aspirin. She was given penicillin during her labor and 3 g during her delivery. Patient states she had a liver ultrasound that was performed on 03/10/2021 which showed a normal liver, normal gallbladder. Tuesday her AST was 290, increased to 541 today, ALT 279 increased to 543. We are likely dealing with elevation in LFTs related to presumed preeclampsia/HELLP syndrome, however she had no evidence of thrombocytopenia or hemolytic anemia. Other possible causes of elevation of LFTs will be worked up. liver enzymes have trended down, patient is asymptomatic. Elevation likely related to presumable preeclampsia. EBV, CMV, ORI pending. Current Visit: Yes Status: Acute Code(s): R74.8 - ABNORMAL LEVELS OF OTHER SERUM ENZYMES SNOMED Code(s): 703410887 (2) Preeclampsia Current Visit: Yes Status: Acute Code(s): O14.90 - UNSPECIFIED PRE- ECLAMPSIA, UNSPECIFIED TRIMESTER SNOMED Code(s): 419826748 Plan: 1. Continue symptomatic and supportive care 2. Acute hepatitis panel ordered and reviewed 3. Repeat CMP reviewed and trending down. 4. Avoid hepatotoxic medications 6. Request liver ultrasound from [facility], report reviewed 7. CMV, EBV, ORI ordered, pending results Thank you for this consultation, Lucero may be discharged home with close follow- up with gastroenterology next week. Patient has order for labs CMP, CBC, and INR added. Dr. Mihaela Cummings I agree with the dictator's note, documented as a scribe by Glenny Benitez.
== END 2021-03-20 15:45 | disposition home or self-care (01) | DRG 788 ==
LOC: FBPOP 18:47 → 4FBP 20:50
PROVIDERS: ADMIT Obstetrics & Gynecology; ATTEND Obstetrics & Gynecology
PROC: 10D00Z1 Extraction of Products of Conception, Low, Open Approach (ICD-10-PCS; principal; 2021-03-17 21:00)
DX: O15.1 Eclampsia complicating labor (principal); O14.24 HELLP syndrome, complicating childbirth; O62.0 Primary inadequate contractions; O69.81X0 Labor and delivery complicated by cord around neck, without compression, not applicable or unspecified; Z37.0 Single live birth; Z3A.35 35 weeks gestation of pregnancy; Z79.82 Long term (current) use of aspirin; Z82.49 Family history of ischemic heart disease and other diseases of the circulatory system
CPT/HCPCS: 59025; 80053; 80074; 81003; 82247; 82565; 82570; 83615; 83735; 84075; 84156; 84450; 84460; 84520; 84550; 85025; 85461; 86038; 86644; 86645; 86665; 86850; 86900; 86901; 88307; 99215

== ENCOUNTER → 2021-04-06 | Outpatient (CLI) | payer OTHER ==
[2021-04-06 14:42] LABS: Basophils # (A) 0.05 X 10*3/uL (0.00-0.10); Basophils % (A) 0.7 %; Eosinophils # (A) 0.38 X 10*3/uL (0.04-0.35); HCT 41.5 % (37.2-46.3); HGB 13.1 g/dL (12.0-15.0); Lymphocytes # (A) 2.22 X 10*3/uL (0.90-5.00); Lymphocytes % (A) 29.4 %; MCH 30.6 pg (27.0-32.0); MCHC 31.6 g/dL (32.0-37.0); Mean Platelet Volume 10.7 fL (9.5-12.2); Monocytes % (A) 7.9 %; Neutrophils # (A) 4.28 X 10*3/uL (1.80-7.70); Neutrophils % (A) 56.6 %; Platelet Count 253 X 10*3/uL (140-440); RBC 4.28 X 10*6/uL (4.10-5.20); RDW 12.5 % (11.5-14.5); WBC 7.56 X 10*3/uL (4.50-10.00)
[2021-04-06 14:50] LABS: INR 0.86 (0.90-1.11); Prothrombin Time 9.5 sec (9.9-11.9)
[2021-04-06 14:52] LABS: African American GFR (CKD) 82.2 (60.0-200.0); Albumin 4.1 g/dL (3.80-4.90); Albumin/Globulin Ratio 1.64 (1.60-3.17); Anion Gap 5.4 mmol/L (4.00-12.00); Carbon Dioxide 27.6 mmol/L (21.6-31.8); Globulin 2.5 g/dL (1.6-3.3); Non-African American GFR(CKD) 70.9 (60.0-200.0); Potassium 4.9 mmol/L (3.5-5.5); Total Protein 6.6 g/dL (6.2-8.2)
== END | disposition home or self-care (01) ==
LOC: LABWHC1 10:41
PROVIDERS: ATTEND Nurse Practitioner
DX: R74.01 Elevation of levels of liver transaminase levels (principal)
CPT/HCPCS: 36415; 80053; 85025; 85610

== ENCOUNTER → 2022-08-19 | Outpatient (CLI) | payer OTHER ==
--- NOTE | 2022-08-20 08:34 | MM ---
Reason for Exam: Screening (asymptomatic). Baseline mammogram. Patient History: Menarche at age 16. First Full-Term at age 40. Late child-bearing (after 30). Maternal grandmother had breast cancer. Maternal aunt (great) had breast cancer. Last menstrual period: 08/11/2022 Risk Values: Deanna 5 year model risk: 0.7%. NCI Lifetime model risk: 12.5%. Prior Study Comparison: Patient's first Mammogram. Tissue Density: The breast tissue is heterogeneously dense. This may lower the sensitivity of mammography. Findings: Analyzed By CAD. There is no suspicious group of microcalcifications or new suspicious mass in either breast. Overall Assessment: Benign, BI-RAD 2 Management: Screening Mammogram of both breasts in 1 year. A clinical breast exam by your physician is recommended on an annual basis and results should be correlated with mammographic findings. Electronically signed and approved by: Ankit Stock M.D. Radiologis
== END | disposition home or self-care (01) ==
LOC: RADMAMWWP 15:44
PROVIDERS: ATTEND Obstetrics & Gynecology
DX: Z12.31 Encounter for screening mammogram for malignant neoplasm of breast (principal); Z80.3 Family history of malignant neoplasm of breast
CPT/HCPCS: 77063; 77067

== ENCOUNTER → 2022-10-01 | Outpatient (CLI) | payer OTHER ==
[2022-10-01 15:34] LABS: HCT 40.3 % (37.2-46.3); HGB 13.5 g/dL (12.0-15.0); MCH 31.8 pg (27.0-32.0); MCHC 33.5 g/dL (32.0-37.0); MCV 94.8 fL (80.0-97.0); Mean Platelet Volume 10.3 fL (9.5-12.2); NRBC Per 100 WBC 0 /100 WBCS (0.0-0.0); Platelet Count 196 X 10*3/uL (140-440); RBC 4.25 X 10*6/uL (4.10-5.20); RDW 13.2 % (11.5-14.5); WBC 8.81 X 10*3/uL (4.50-10.00)
[2022-10-01 20:12] LABS: ALT 99 U/L (8-44); AST 44 U/L (13-35); African American GFR (CKD) 75.2 (60.0-200.0); Albumin 3.7 g/dL (3.8-4.9); Albumin/Globulin Ratio 1.49 (1.60-3.17); Alkaline Phosphatase 59 U/L (41-126); BUN/Creat Ratio 11.12 Ratio (12.00-20.00); Blood Urea Nitrogen 11.9 mg/dL (9.0-27.0); Calcium 8.7 mg/dL (8.7-10.3); Carbon Dioxide 18.6 mmol/L (20.0-27.5); Chloride 107 mmol/L (96-109); Globulin 2.5 g/dL (1.6-3.3); Glucose 78 mg/dL (70-110); LDL Cholesterol,Calculated 131.5 mg/dL (0.0-131.0); Non-African American GFR(CKD) 64.9 (60.0-200.0); Potassium 4.6 mmol/L (3.5-5.5); Sodium 139 mmol/L (135-145); Total Protein 6.2 g/dL (6.2-8.2)
== END | disposition home or self-care (01) ==
LOC: LABWHC1 07:51
PROVIDERS: ATTEND Obstetrics & Gynecology
DX: Z13.220 Encounter for screening for lipoid disorders (principal); Z13.29 Encounter for screening for other suspected endocrine disorder
CPT/HCPCS: 36415; 80053; 80061; 83036; 84443; 85027

== ENCOUNTER → 2023-10-05 | Outpatient (CLI) | payer OTHER ==
[2023-10-05 11:14] LABS: HCT 46.5 % (37.2-46.3); HGB 14.3 g/dL (12.0-15.0); MCH 29.5 pg (27.0-32.0); MCHC 30.8 g/dL (32.0-37.0); MCV 95.9 FL (80.0-97.0); Mean Platelet Volume 10.9 FL (9.5-12.2); NRBC Per 100 WBC 0 X 10*3/uL (0.00-0.01); Platelet Count 160 X 10*3/uL (140-440); RBC 4.85 X 10*6/uL (4.10-5.20); RDW 12.6 % (11.5-14.5); WBC 6.68 X 10*3/uL (4.50-10.00)
[2023-10-05 12:51] LABS: Chol/HDL Ratio 3.11 Ratio; LDL Cholesterol,Calculated 119.4 mg/dL (0.0-131.0)
[2023-10-05 12:53] LABS: ALT 11 U/L (8-44); AST 17 U/L (13-35); Albumin 3.9 g/dL (3.8-4.9); Alkaline Phosphatase 66 U/L (41-126); Blood Urea Nitrogen 14.2 mg/dL (9.0-27.0); Calcium 9.4 mg/dL (8.7-10.3); Carbon Dioxide 19.6 mmol/L (21.6-31.8); Chloride 105 mmol/L (96-109); Globulin 2.6 g/dL (1.6-3.3); Glucose 86 mg/dL (70-110); Potassium 4.8 mmol/L (3.5-5.5); Sodium 139 mmol/L (135-145); Total Bilirubin 0.7 mg/dL (0.3-1.2); Total Protein 6.5 g/dL (6.2-8.2)
--- NOTE | 2023-10-06 13:37 | MM ---
Reason for Exam: Screening (asymptomatic). Last mammogram was performed 1 year(s) and 2 month(s) ago. Patient History: Menarche at age 16. First Full-Term at age 40. Late child-bearing (after 30). Maternal grandmother had breast cancer. Maternal aunt (great) had breast cancer. Sister had breast cancer under age 50. Last menstrual period: 09/16/2023 Risk Values: Deanna 5 year model risk: 1.1%. NCI Lifetime model risk: 17.6%. Prior Study Comparison: 08/19/2022 Bilateral MG 3D screening mammo w/cad, [facility]. Tissue Density: The breast tissue is almost entirely fat. Findings: Analyzed By CAD. There is no suspicious group of microcalcifications or new suspicious mass. Overall Assessment: Negative, BI-RAD 1 Management: Screening Mammogram of both breasts in [address] [facility] will attempt to contact patient to return for supplemental views and ultrasound if indicated. Patient should continue monthly self-breast exams. A clinical breast exam by your physician is recommended on an annual basis. This exam should not preclude additional follow-up of suspicious palpable abnormalities. Note on Deanna scores and lifetime risk: 1. A Deanna score greater than 3% is considered moderate risk. If this is the case, consider specialist referral to assess eligibility for a risk reducing agent. 2. If overall lifetime risk for the development of breast cancer is 20% or higher, the patient may qualify for future screening with alternating mammogram and breast MRI. Electronically signed and approved by: Juan Alberto Hayden DO
== END | disposition home or self-care (01) ==
LOC: RADMAMWWP 08:07
PROVIDERS: ATTEND Obstetrics & Gynecology
DX: Z12.31 Encounter for screening mammogram for malignant neoplasm of breast (principal); Z13.220 Encounter for screening for lipoid disorders; Z80.3 Family history of malignant neoplasm of breast
CPT/HCPCS: 77063; 77067; 80053; 80061; 83036; 85027